=== PATIENT | female | born 1995 | race Hispanic/Latino ===

== ENCOUNTER 2022-03-23 06:05 | Day surgery (SDC) | payer BC ==
[2022-03-19 15:39] LABS: Absolute Lymphocytes (CBC) 2.5 K/uL (0.7-4.9); Hematocrit 41.7 % (36.0-45.0); Lymphocytes % 21.7 % (15.3-44.8)
[2022-03-23] MEDS ORDERED: CEFAZOLIN SODIUM 1 GM/VIAL ONE ×2 (06:24→07:35)
[2022-03-23 06:37] LABS: Specific Gravity > 1.030 (1.005-1.030)
[2022-03-23 06:48] VITALS: O2SAT 100
[2022-03-23] MEDS ORDERED: propofoL 200 MG/20 ML VIAL IV ONE (07:16)
[2022-03-23] MEDS ORDERED: MIDAZOLAM HCL 2 MG/2 ML INJ ONE (07:16)
[2022-03-23] MEDS ORDERED: LIDOCAINE 1% MPF 5 ML VIAL ONE (07:16)
[2022-03-23] MEDS ORDERED: ROCURONIUM 50 MG/5 ML VIAL IV ONE (07:16)
[2022-03-23] MEDS ORDERED: FENTANYL CITR 100 MCG/2 ML ONE (07:16)
[2022-03-23] MEDS ORDERED: Ringers Lactate 1,000 ML IV ONE (07:35)
[2022-03-23] MEDS ORDERED: NS 0.9% VIAL 10 ML ONE (07:36)
[2022-03-23] MEDS ORDERED: dexAMETHasone 10 MG/ML VIAL ONE (07:48)
[2022-03-23] MEDS ORDERED: GLYCOPYRROLATE 0.2 MG/ML SYR ONE (07:49)
[2022-03-23] MEDS ORDERED: NEOSTIGMINE 1 MG/ML -5 ML ONE (07:49)
[2022-03-23] MEDS ORDERED: KETOROLAC 30 MG/ML INJ ONE (07:49)
[2022-03-23] MEDS ORDERED: ONDANSETRON 4 MG/2 ML VIAL ONE (07:49)
[2022-03-23] MEDS ORDERED: METHYLENE BLUE 0.5% 10 ML AMP ONE (08:00)
[2022-03-23] MEDS ORDERED: HYDROCODONE/APAP 7.5/325 MG TAB PO PRN (08:37)
--- NOTE | 2022-03-23 08:42 | P.OP ---
Date of Service: 03/23/22 Preop diagnosis: Pilonidal cyst Postop diagnosis: Same Procedure performed: Wide excision pilonidal cyst Surgeon: Meliton Bull MD Olap Developer: MEEK Santana Estimated blood loss: Minimal Specimen: Pilonidal cyst Findings: As above Anesthesia: General Complications: None Drains: Quarter-inch Ono drain Fluids and blood products: Nonapplicable Disposition: Recovery room Operative note: Patient brought to the OR and placed in the supine position. General anesthesia begun. Patient placed in the prone position. Patient prepped and draped in the usual sterile fashion. Methylene blue used to inject in the pilonidal sinus. Marcaine 0.5% infiltrated locally. 15 blade used to make approximately a 6 x 3 cm incision around the pilonidal sinuses. Subcutaneous tissue divided and entire cyst excised down to the presacral fascia. Specimen removed and sent to pathology. Wound irrigated bleeding controlled cautery. Avinash drain quarter-inch placed and secured with 3-0 nylon. 2-0 chromic used to reapproximate deep subcutaneous tissue and subcutaneous tissue. 3-0 nylon used to approximate the skin edges. Sterile dressing applied and patient awakened. Patient taken to recovery room in good general condition. CC: Dr. Cowan's office
[2022-03-23 10:18] VITALS: BP 104/59; TEMP 97.3
== END 2022-03-23 10:00 | disposition home or self-care (01) ==
LOC: OR 06:05
PROVIDERS: ATTEND Surgery
PROC: 0JB90ZZ Excision of Buttock Subcutaneous Tissue and Fascia, Open Approach (ICD-10-PCS; principal; 2022-03-23 07:30)
DX: L05.91 Pilonidal cyst without abscess (principal); Z20.822 Contact with and (suspected) exposure to COVID-19
CPT/HCPCS: 85025; 36415; 81025; 88304; 11770; U0002; J2704; J2250; J3010; J1100; J2710; J7120; J2405; J0690 ×2